=== PATIENT | male | born 1935 | race Caucasian/White ===

== ENCOUNTER 2020-11-24 15:16 | Outpatient (CLI) | payer MEDICARE ==
--- NOTE | 2020-11-24 15:31 | RAD ---
EXAM: Chest PA and lateral: HISTORY: Shortness of breath COMPARISON: 10/16/2005, 02/15/2017 FINDINGS: Heart: Normal cardiac silhouette Aorta: Unremarkable Pulmonary vessels: Normal Costophrenic angles: No pleural effusion. Bibasilar atelectasis. Lungs: No consolidation. Incompletely evaluated nodule projects over the right upper lobe measuring 2 .6 cm. Pneumothorax: No pneumothorax Osseous structures: No osseous abnormalities IMPRESSION: 1. Incompletely evaluated right upper lobe nodule. Better interrogation with chest CT is recommended Code lung nodule CODE T
== END 2020-11-24 15:17 | disposition home or self-care (01) ==
LOC: RAD-FRANK 15:16
PROVIDERS: ATTEND Nurse Practitioner Family
DX: R06.02 Shortness of breath (principal); R91.1 Solitary pulmonary nodule
CPT/HCPCS: 71046

== ENCOUNTER 2020-12-02 11:58 | Outpatient (CLI) | payer MEDICARE, OTHER ==
--- NOTE | 2020-12-02 13:42 | CT ---
Exam: Chest CT with contrast HISTORY: Right upper lung nodule. COMPARISON: None Correlation: Chest radiograph 11/24/2020 FINDINGS: Mediastinum: No mass, lymphadenopathy or hematoma. Normal heart size. No significant pericardial flui d. There is an enlarged pericardial lymph node measuring 1.2 x 1.0 cm. Aorta: Normal caliber. No periaortic fat stranding Subdiaphragmatic structures: Symmetric enhancement of the kidneys. Bilateral renal cysts. No obstruct gonzalo uropathy. Trachea and central bronchi: Patent LUNGS: Multiple solid nodules throughout the lung parenchyma. There is a pleural-based solid nodule a long the posterior aspect of the right upper lobe measuring 2.1 x 1.7 cm. This nodule is felt to represent the recent mammographic finding. Additional nodules are identified. There is a 0.9 x 0.7 cm solid nodule in the superior segment of the right lower lobe. There appear to be groundglass nodules in the right lung base measuring 2.3 x 1.6 cm and 1.7 x 1.0 cm. No pleural effusion. No pneumothorax. Central pulmonary arteries: There are evidence of pulmonary emboli involving bilateral upper lobe, bi lateral lower lobe and middle lobe pulmonary lobar arteries. IMPRESSION: 1. Multiple lung parenchymal nodules, worrisome for malignancy until proven otherwise. 2. Bilateral pulmonary emboli. 3. Results study conveyed to Dr. Zamora 12/02/2020 at 1:41 PM. Findings also conveyed to the patient's daughter. Patient's daughter is instructed to being the patient directly back to [facility] ER. Code CR Transcribed Date/Time: 12/02/2020 1:50 PM
[2020-12-02] MEDS ORDERED: Iopamidol-370 76% 500 ML 1 ML ONE (14:57)
== END 2020-12-02 11:59 | disposition home or self-care (01) ==
LOC: BICCT 11:58
PROVIDERS: ATTEND Internal Medicine Pulmonary Disease
DX: R91.1 Solitary pulmonary nodule (principal); R91.8 Other nonspecific abnormal finding of lung field; I26.99 Other pulmonary embolism without acute cor pulmonale
CPT/HCPCS: 71260; 82565

== ENCOUNTER 2020-12-02 15:12 | Inpatient (IN) | payer MEDICARE, OTHER ==
[2020-12-02 15:56] LABS: #Eosinphils 0.1 thou/uL (0.0-0.7); #Lymphocytes 1.7 thou/uL (1.20-3.40); #Monocytes 0.8 thou/uL (0.11-0.59); #Neutrophils 6.7 thou/uL (1.40-6.50); %Basophils 0.3 % (0.0-1.0); %Eosinophils 1.5 % (0.0-10.0); %Monocytes 8.4 % (0.0-10.0); %Neutrophils 71.8 % (42.0-75.0); Hemoglobin 14.1 g/dL (14.0-18.0); Mean Corpuscular HGB CONC 34.2 g/dL (32.0-36.0); Mean Corpuscular Hemoglobin 33.9 pg (27.0-31.0); Mean Corpuscular Volume 98.9 fL (78.0-98.0); Mean Platelet Volume 5.3 fL (7.4-10.4); Platelet Count 186 thou/uL (130-400); RBC Distribution Width 12.9 % (11.5-14.5); Red Blood Cell (RBC) Count 4.16 mill/uL (4.70-6.10); White Blood Cell (WBC) Count 9.4 thou/uL (4.8-10.8)
[2020-12-02] MEDS ORDERED: Enoxaparin Sodium 100 MG/ML SYRINGE ONE (15:56)
[2020-12-02 16:01] LABS: INR-International Normal Ratio 1.1; PTT 29.1 sec (22.9-36.1); Prothrombin Time 13.9 sec (12.0-14.7)
[2020-12-02 16:16] LABS: D-Dimer Test 6.4 *mcg/mL (0.27-0.43)
[2020-12-02 16:27] LABS: ALT (SGPT) 27 U/L (8-55); AST (SGOT) 28 U/L (5-34); Albumin 3.9 g/dL (3.4-4.8); Alkaline Phosphatase 88 U/L (40-110); Anion Gap 16 mmol/L (10-20); BUN (Urea Nitrogen) 25 mg/dL (8.4-25.7); Bilirubin, Total 0.9 mg/dL (0.2-1.2); Calc. Creatinine Clearance 0 mL/min (70-130); Calcium 9.3 mg/dL (7.8-10.44); Carbon Dioxide 23 mmol/L (23-31); Chloride 103 mmol/L (98-107); Globulin 3.5 g/dL (2.4-3.5); Glucose 116 mg/dL (83-110); Potassium 5.1 mmol/L (3.5-5.1); Protein, Total 7.4 g/dL (5.8-8.1); Sodium 137 mmol/L (136-145)
--- NOTE | 2020-12-02 17:15 | PDOC.HHP ---
Hospitalist HPI - History of Present Illness SOB History of Present Illness: Mr. Schneider is an 85-year-old male with a past medical history of hypertension, glaucoma, prostate cancer status post prostatectomy who presents to the emergency room sent in from radiologist office for PE found on CT scan. Patient reports that over the past few months he has had worsening shortness of breath on exertion which prompted head to present to his PCP. His PCP had a chest x- ray which showed pulmonary nodules and patient was referred to Dr. Correia's office who ordered a CT scan of the chest. CT scan showed multiple nodules concerning for malignancy as well as multiple bilateral upper lower and middle lobe pulmon rickey embolisms. Patient has noted that he has chronic swellings bilaterally, but that his left leg is slightly more swollen than usual. Patient denies chest pain, shortness of breath at rest, palpitations. Denies numbness weakness or paresthesias. Patient reports he otherwise feels at his baseline. In emergency room initial vital signs 134/79, 115, 24, 97.9, 95% on room air. EKG showed sinus tachycardia with [id number]. H/H 14.1/41.2 D-dimer 6.4. WBC 9.4. Platelets 186. PT 13.9, INR 1.1. BUN/CR 25/1.14, sodium 137, potassium 5.1. Patient received 1mg/kg of Lovenox. Hospitalist ROS - Review of Systems Constitutional: denies: fever, chills, sweats, weakness, malaise, other Eyes: denies: pain, vision change, conjunctivae inflammation, eyelid inflammation, redness, other ENT: denies: ear pain, ear discharge, nose pain, nose discharge, nose congestion, mouth pain, mouth swelling, throat pain, throat swelling, other Respiratory: reports: SOB with excertion. denies: cough, dry, shortness of breath, hemoptysis, pleuritic pain, sputum, wheezing, other Cardiovascular: denies: chest pain, palpitations, orthopnea, paroxysmal noc. dyspnea, edema, light headedness, other Gastrointestinal: denies: nausea, vomiting, abdominal pain, diarrhea, constipation, melena, hematochezia, other Genitourinary: denies: dysuria, frequency, incontinence, hematuria, retention, other Musculoskeletal: denies: neck pain, shoulder pain, arm pain, back pain, hand p ain, leg pain, foot pain, other Skin: denies: rash, lesions, cesar, bruising, other Neurological: denies: weakness, numbness, incoordination, change in speech, confusion, seizures, other - Medication Medications: Medications include Clonidine Lisinopril Allergies to penicillin, sulfa drugs Hospitalist History - Past Medical History Other Medical History: Hypertension Prostate cancer status post prostatectomy Glaucoma - Past Surgical History Other Surgical History: Past surgical history includes Cholecystectomy Prostatectomy Knee surgery - Family History Other Family History: Denies family history of cancer - Social History Smoking Status: Former smoker (Quit smoking over 10 years ago) Alcohol: reports: None Drugs: reports: none Living Situation: With Family Activity level: uses cane/walker - Exam General Appearance: NAD, awake alert Eye: PERRL, anicteric sclera ENT: normocephalic atraumatic, no oropharyngeal lesions, moist mucosa Neck: supple, symmetric, no JVD, no thyromegaly, no lymphadenopathy, no carotid bruit Heart: RRR, no murmur, no gallops, no rubs, normal peripheral pulses Respiratory: CTAB, no wheezes, no rales, no ronchi, normal chest expansion, no tachypnea, normal percussion Gastrointestinal: soft, non-tender, non-distended, normal bowel sounds, no palpable masses, no hepatomegaly, no splenomegaly, no bruit Extremities: no cyanosis, no clubbing, no edema Skin: normal turgor, no lesions, no rashes Neurological: cranial nerve grossly intact, normal sensation to touch, no weakness, no focal deficits, no new deficit Musculoskeletal: normal tone, normal strength, no muscle wasting Psychiatric: normal affect, normal behavior, A&O x 3 Hospitalist Results - Labs Result Diagrams: 12/02/20 15:45 12/02/20 15:45 Lab results: WBC 9.4 thou/uL (4.8-10.8) 12/02/20 15:45 Hgb 14.1 g/dL (14.0-18.0) 12/02/20 15:45 Hct 41.2 % (42.0-52.0) L 12/02/20 15:45 MCV 98.9 fL (78.0-98.0) H 12/02/20 15:45 Plt Count 186 thou/uL (130-400) 12/02/20 15:45 Neutrophils % 71.8 % (42.0-75.0) 12/02/20 15:45 Sodium 137 mmol/L (136-145) 12/02/20 15:45 Potassium 5.1 mmol/L (3.5-5.1) 12/02/20 15:45 Chloride 103 mmol/L (98-107) 12/02/20 15:45 Carbon Dioxide 23 mmol/L (23-31) 12/02/20 15:45 BUN 25 mg/dL (8.4-25.7) 12/02/20 15:45 Creatinine 1.14 mg/dL (0.7-1.3) 12/02/20 15:45 Glucose 116 mg/dL (83-110) H 12/02/20 15:45 Calcium 9.3 mg/dL (7.8-10.44) 12/02/20 15:45 Total Bilirubin 0.9 mg/dL (0.2-1.2) 12/02/20 15:45 AST 28 U/L (5-34) 12/02/20 15:45 ALT 27 U/L (8-55) 12/02/20 15:45 Alkaline Phosphatase 88 U/L (40-110) 12/02/20 15:45 Troponin I Less than 0.010 ng/mL (< 0.028) 12/02/20 15:45 B-Natriuretic Peptide 13.6 pg/mL (0-100) 12/02/20 15:45 Serum Total Protein 7.4 g/dL (5.8-8.1) 12/02/20 15:45 Albumin 3.9 g/dL (3.4-4.8) 12/02/20 15:45 Hospitalist H&P A/P - Plan Plan: 85-year-old male past medical history of hypertension, glaucoma, prostate cancer status post mastectomy who has had few months history of shortness of breath on exertion found to have bilateral PEs on outpatient CT scan as well as multiple lung nodules concerning for malignancy. Patient follows with Dr. Correia. Bilateral pulmonary embolism Outpatient CT scan showed multiple pulmonary nodules as well as bilateral upper middle and lower lobe pulmonary embolism. Patient's respiratory status currently stable not requiring oxygen. Patient has chronic bilateral lower extremity swelling, but does note that his left leg has worse swelling than normal. He is a former smoker but quit over 10 years ago. He has no family history of cancer. Patient received therapeutic Lovenox in the emergency room, which we will continue. Plan Lovenox therapeutic Closely monitor respiratory status Telemetry monitoring Pulmonology consult Multiple pulmonary nodules CT scan with multiple pulmonary nodules concerning for malignancy. Patient does have a history of prostate cancer which he underwent a prostatectomy and has been in complete remission. Does have a history of smoking but quit over 10 years ago family history of cancer. Respiratory status stable not requiring O2 at this time. Plan Pulmonology consult Hypertension We will continue home clonidine and lisinopril Glaucoma Continue home eye drops DVT prophylaxistherapeutic Lovenox Full codeMDM is patient's daughter Case discussed with attending physician, Dr. Maynard.
[2020-12-02 20:29] VITALS: BMI 32.0
[2020-12-02] MEDS ORDERED: Acetaminophen 650 MG Suppository PR PRN (21:54)
[2020-12-02] MEDS ORDERED: Acetaminophen 325 MG TAB PO PRN (21:54)
[2020-12-02] MEDS ORDERED: Albuterol 200 PUFF (6.7GM INHALER) INH PRN (22:13)
[2020-12-03 03:43] LABS: #Eosinphils 0.1 thou/uL (0.0-0.7); #Lymphocytes 1.4 thou/uL (1.20-3.40); #Monocytes 0.9 thou/uL (0.11-0.59); #Neutrophils 4.6 thou/uL (1.40-6.50); %Basophils 0.6 % (0.0-1.0); %Monocytes 12.5 % (0.0-10.0); %Neutrophils 64.9 % (42.0-75.0); Hemoglobin 13.1 g/dL (14.0-18.0); Mean Corpuscular HGB CONC 33.6 g/dL (32.0-36.0); Mean Corpuscular Hemoglobin 33.1 pg (27.0-31.0); Mean Corpuscular Volume 98.7 fL (78.0-98.0); Mean Platelet Volume 5.7 fL (7.4-10.4); Platelet Count 162 thou/uL (130-400); RBC Distribution Width 12.9 % (11.5-14.5); Red Blood Cell (RBC) Count 3.94 mill/uL (4.70-6.10); White Blood Cell (WBC) Count 7.1 thou/uL (4.8-10.8)
[2020-12-03 03:59] LABS: Anion Gap 13 mmol/L (10-20); BUN (Urea Nitrogen) 23 mg/dL (8.4-25.7); Calc. Creatinine Clearance 72 mL/min (70-130); Calcium 8.5 mg/dL (7.8-10.44); Carbon Dioxide 24 mmol/L (23-31); Chloride 106 mmol/L (98-107); Glucose 124 mg/dL (83-110); Potassium 3.8 mmol/L (3.5-5.1); Sodium 139 mmol/L (136-145)
[2020-12-03] MEDS: Lisinopril/Hydrochlorothiazide 20/25 mg Tablet PO SCH (07:48)
[2020-12-03] MEDS: Enoxaparin Sodium 100 MG/ML SYRINGE SC SCH ×2 (07:48→21:42)
[2020-12-03 10:32] LABS: SARS-CoV-2 PCR by NAA Not Detected (NotDetected)
[2020-12-03] MEDS: DorzolamidE/Timolol 2%/0.5% Ophth Soln 10 ml Bottle EA EYE SCH ×2 (11:00→21:41)
[2020-12-03] MEDS ORDERED: Latanoprost 0.005% Ophth Soln 2.5 ml Bottle EA EYE SCH (12:00)
--- NOTE | 2020-12-03 12:13 | ULT ---
Bilateral lower extremity venous Doppler ultrasound: 12/03/2020 COMPARISON: None HISTORY: Edema, swelling, assess for DVT TECHNIQUE: Multiplanar grayscale sonographic imaging of the venous structures of bilateral lower extr emities obtained with color flow and spectral analysis FINDINGS: Bilateral common femoral veins, greater saphenous veins, profunda femoral veins, femoral ve ins, popliteal veins, and posterior tibial veins are patent. There is normal blood flow, augmentation, and compression within the deep venous system bilaterally. No evidence for DVT on eithe r side IMPRESSION: No evidence for deep venous thrombosis of either lower extremity.
--- NOTE | 2020-12-03 14:52 | PDOC.HOSPP ---
- Subjective Encounter Date: 12/03/20 Encounter Time: 14:49 Subjective: No overnight events. Patient sitting up in chair comfortably. Denies chest pain, SOB. No other concerns or complaints at this time. Chart and medications reviewed. - Objective Vital Signs & Weight: Vital Signs (12 hours) Temp Pulse Resp BP Pulse Ox 12/03/20 12:00 98.0 F 105 H 18 152/70 H 93 L 12/03/20 07:55 92 L 12/03/20 07:48 90 12/03/20 07:43 98.5 F 86 16 137/76 92 L 12/03/20 03:25 98.4 F 90 18 143/67 H 93 L Weight Weight 223 lb 7 oz I&O: 12/02/20 12/03/20 12/04/20 06:59 06:59 06:59 Intake Total 50 Output Total 215 Balance -165 Result Diagrams: 12/03/20 03:11 12/03/20 03:11 Hospitalist ROS - Review of Systems Constitutional: denies: fever, chills, sweats, weakness, malaise, other Eyes: denies: vision change ENT: denies: nose congestion, throat pain Cardiovascular: denies: chest pain, palpitations, light headedness Genitourinary: denies: dysuria, frequency, incontinence, hematuria, retention, other Skin: denies: rash, lesions, cesar, bruising, other Neurological: denies: weakness, numbness, incoordination, change in speech, confusion, seizures, other - Medication Medications: Active Medications Generic Name Dose Route Start Last Admin Trade Name Chanq PRN Reason Stop Dose Admin Dorzolamide/Timolol 1 drop 12/03/20 09:00 12/03/20 11:00 Dorzolamide/Timolol 2%/0.5% Ophth Soln 10 Ml Bottle EA EYE 1 drp QAM ELIOT Administration Enoxaparin Sodium 100 mg 12/03/20 09:00 12/03/20 07:48 Enoxaparin Sodium 100 Mg/Ml Syringe SC 100 mg 0900,2100 ELIOT Administration Lisinopril/HCTZ 1 tab 12/03/20 09:00 12/03/20 07:48 Lisinopril/Hydrochlorothiazide 20/25 Mg Tablet PO 1 tab DAILY ELIOT Administration - Exam General Appearance: NAD, awake alert Eye: PERRL, anicteric sclera ENT: normocephalic atraumatic, no oropharyngeal lesions, moist mucosa Neck: supple, symmetric, no JVD, no thyromegaly, no lymphadenopathy, no carotid bruit Heart: RRR, no murmur, no gallops, no rubs, normal peripheral pulses Respiratory: CTAB, no wheezes, no rales, no ronchi, normal chest expansion, no tachypnea, normal percussion Gastrointestinal: soft, non-tender, non-distended, normal bowel sounds, no pal pable masses, no hepatomegaly, no splenomegaly, no bruit Extremities: no cyanosis, no clubbing, no edema Skin: normal turgor, no lesions, no rashes Neurological: cranial nerve grossly intact, normal sensation to touch, no wea kness, no focal deficits, no new deficit Musculoskeletal: normal tone, normal strength, no muscle wasting Psychiatric: normal affect, normal behavior, A&O x 3 Hosp A/P - Plan Plan: 85-year-old male past medical history of hypertension, glaucoma, prostate cancer status post mastectomy who has had few months history of shortness of breath on exertion found to have bilateral PEs on outpatient CT scan as well as multiple lung nodules concerning for malignancy. Patient follows with Dr. Correia. Bilateral pulmonary embolism Outpatient CT scan showed multiple pulmonary nodules as well as bilateral upper middle and lower lobe pulmonary embolism. Patient's respiratory status currently stable not requiring oxygen. Patient has chronic bilateral lower extremity swelling, but does note that his left leg has worse swelling than normal. He is a former smoker but quit over 10 years ago. He has no family history of cancer. LE DVT study negative. Continued on therapeutic lovenox. Will hold off on oral AC in case pulmonary has plans for bronchoscopy. Plan Lovenox therapeutic Closely monitor respiratory status Telemetry monitoring Pulmonology consult Multiple pulmonary nodules CT scan with multiple pulmonary nodules concerning for malignancy. Patient does have a history of prostate cancer which he underwent a prostatectomy and has been in complete remission. Does have a history of smoking but quit over 10 years ago family history of cancer. Respiratory status stable not requiring O2 at this time. Plan Pulmonology consult Hypertension We will continue home clonidine and lisinopril Glaucoma Continue home eye drops DVT prophylaxistherapeutic Lovenox Full codeMDM is patient's daughter Case discussed with attending physician, Dr. Garcia.
--- NOTE | 2020-12-03 16:02 | CON ---
DATE OF CONSULTATION: 12/03/2020 HISTORY OF PRESENT ILLNESS: Mr. Schneider is an 85-year-old male. He was seen by my associate, ordered a CT of his chest. He has multiple pulmonary nodules. CT scanning showed pulmonary emboli as an incidental finding. Subsequently, he was admitted for treatment of pulmonary emboli. He is under the impression that this is what caused the pulmonary nodules, but I have explained to him that we still do not know what has caused pulmonary nodules and this has to be worked up at some point. PAST MEDICAL HISTORY: 1. Remarkable for hypertension. 2. History of prostate cancer with prostatectomy in the past. 3. History of glaucoma. 4. History of cholecystectomy. 5. History of knee surgery. MEDICATIONS: He is on Catapres and lisinopril prior to admission. ALLERGIES: REPORTS ALLERGIES TO PENICILLIN AND SULFA. FAMILY HISTORY: Negative for lung disease in early age. REVIEW OF SYSTEMS: Ten-point is otherwise negative. He states his dyspnea on exertion is markedly improved. PHYSICAL EXAMINATION: VITAL SIGNS: He is afebrile. Heart rate is 90, respiratory rate 16, oximetry is 92% on room air, blood pressure 152/70. HEAD AND NECK: Unremarkable. LUNGS: Clear. HEART: Regular rhythm. S1, S2 are normal. ABDOMEN: Soft and nontender. EXTREMITIES: Without clubbing, cyanosis, or edema. LABORATORY DATA: White count 7.1, hemoglobin 13.1, platelets 162. Electrolytes are normal. IMPRESSION: 1. Multiple pulmonary nodules of unclear etiology with history of prostate cancer. 2. Thromboembolic disease as an incidental finding. He will be anticoagulated for several days of Lovenox and Dr. Correia had seen in consultation, make decisions regarding workup for these nodules at some point in time. This is a 50 min. consult with greater than 50% of the time spent on the unit with coordination of care. Job ID: [id number] [facility]
[2020-12-03] MEDS: Latanoprost 0.005% Ophth Soln 2.5 ml Bottle EA EYE SCH (21:42)
[2020-12-03] MEDS: cloNIDine 0.1 MG TAB PO SCH (21:42)
[2020-12-04 05:07] LABS: #Eosinphils 0.2 thou/uL (0.0-0.7); #Lymphocytes 1.5 thou/uL (1.20-3.40); #Monocytes 0.7 thou/uL (0.11-0.59); #Neutrophils 4.8 thou/uL (1.40-6.50); %Basophils 0.5 % (0.0-1.0); %Eosinophils 2.8 % (0.0-10.0); %Lymphocytes 20.8 % (21.0-51.0); %Neutrophils 65.9 % (42.0-75.0); Hemoglobin 12.6 g/dL (14.0-18.0); Mean Corpuscular HGB CONC 33.5 g/dL (32.0-36.0); Mean Corpuscular Hemoglobin 33.1 pg (27.0-31.0); Mean Corpuscular Volume 98.6 fL (78.0-98.0); Mean Platelet Volume 5.8 fL (7.4-10.4); Platelet Count 161 thou/uL (130-400); RBC Distribution Width 12.8 % (11.5-14.5); White Blood Cell (WBC) Count 7.3 thou/uL (4.8-10.8)
[2020-12-04 05:28] LABS: Anion Gap 13 mmol/L (10-20); BUN (Urea Nitrogen) 21 mg/dL (8.4-25.7); Calc. Creatinine Clearance 75 mL/min (70-130); Calcium 8.4 mg/dL (7.8-10.44); Carbon Dioxide 22 mmol/L (23-31); Chloride 108 mmol/L (98-107); Glucose 106 mg/dL (83-110); Potassium 4.1 mmol/L (3.5-5.1); Sodium 139 mmol/L (136-145)
[2020-12-04] MEDS: DorzolamidE/Timolol 2%/0.5% Ophth Soln 10 ml Bottle EA EYE SCH ×2 (08:21→22:06)
[2020-12-04] MEDS: Lisinopril/Hydrochlorothiazide 20/25 mg Tablet PO SCH (08:21)
[2020-12-04] MEDS: Enoxaparin Sodium 100 MG/ML SYRINGE SC SCH ×2 (08:22→22:06)
--- NOTE | 2020-12-04 14:46 | PDOC.HOSPP ---
- Subjective Encounter Date: 12/04/20 Encounter Time: 10:20 Subjective: Patient sitting in the chair - daughter at bedside. Explained the plan for today. 2D echo ordered. Patient is getting Lovenox twice a day dose. There was a plan to be evaluated by Dr. Correia for pulmonary nodule. If he is planning to do bronchoscopy at while inpatient then we have to wait until that has been done before switching Lovenox to oral anticoagulant. - Objective Vital Signs & Weight: Vital Signs (12 hours) Temp Pulse Resp BP Pulse Ox 12/04/20 11:20 97.7 F 72 16 113/65 95 12/04/20 08:30 94 L 12/04/20 08:21 78 12/04/20 07:38 97.8 F 72 20 155/74 H 94 L 12/04/20 04:00 97.8 F 78 22 H 123/66 96 Weight Weight 223 lb 7 oz I&O: 12/03/20 12/04/20 12/05/20 06:59 06:59 06:59 Intake Total 50 930 Output Total 215 950 Balance -165 -20 Result Diagrams: 12/04/20 04:07 12/04/20 04:07 Hospitalist ROS - Medication Medications: Active Medications Generic Name Dose Route Start Last Admin Trade Name Freq PRN Reason Stop Dose Admin Clonidine 0.1 mg 12/03/20 21:00 12/03/20 21:42 Clonidine 0.1 Mg Tab PO 0.1 mg HS ELIOT Administration Dorzolamide/Timolol 1 drop 12/03/20 09:00 12/04/20 08:21 Dorzolamide/Timolol 2%/0.5% Ophth Soln 10 Ml Bottle EA EYE 1 drp QAM ELIOT Administration Dorzolamide/Timolol 2 drop 12/03/20 21:00 12/03/20 21:41 Dorzolamide/Timolol 2%/0.5% Ophth Soln 10 Ml Bottle EA EYE 2 drop QPM ELIOT Administration Enoxaparin Sodium 100 mg 12/03/20 09:00 12/04/20 08:22 Enoxaparin Sodium 100 Mg/Ml Syringe SC 100 mg 0900,2100 ELIOT Administration Lisinopril/HCTZ 1 tab 12/03/20 09:00 12/04/20 08:21 Lisinopril/Hydrochlorothiazide 20/25 Mg Tablet PO 1 tab DAILY ELIOT Administration Latanoprost 1 drop 12/03/20 21:00 12/03/20 21:42 Latanoprost 0.005% Oph Soln 2.5 Ml Bottle EA EYE 1 drop HS ELIOT Administration - Exam General Appearance: NAD, awake alert Eye: PERRL ENT: normocephalic atraumatic Neck: supple Heart: RRR, normal peripheral pulses Respiratory: CTAB, normal chest expansion Gastrointestinal: soft, normal bowel sounds Neurological: cranial nerve grossly intact, no focal deficits Psychiatric: normal affect, normal behavior, A&O x 3 Hosp A/P - Plan 85-year-old male past medical history of hypertension, glaucoma, prostate cancer status post mastectomy who has had few months history of shortness of breath on exertion found to have bilateral PEs on outpatient CT scan as well as multiple lung nodules concerning for malignancy. Patient follows with Dr. Correia. Bilateral pulmonary embolism Outpatient CT scan showed multiple pulmonary nodules as well as bilateral upper middle and lower lobe pulmonary embolism. Patient's respiratory status currently stable not requiring oxygen. Patient has chronic bilateral lower extremity swelling, but does note that his left leg has worse swelling than normal. He is a former smoker but quit over 10 years ago. He has no family history of cancer. LE DVT study negative. Continued on therapeutic lovenox. Will hold off on oral AC in case pulmonary has plans for bronchoscopy. Plan Lovenox therapeutic Closely monitor respiratory status Telemetry monitoring Pulmonology consult Multiple pulmonary nodules CT scan with multiple pulmonary nodules concerning for malignancy. Patient does have a history of prostate cancer which he underwent a prostatectomy and has been in complete remission. Does have a history of smoking but quit over 10 years ago family history of cancer. Respiratory status stable not requiring O2 at this time. Plan Pulmonology consult Hypertension We will continue home clonidine and lisinopril Glaucoma Continue home eye drops DVT prophylaxistherapeutic Lovenox Full codeMDM is patient's daughter 24th 2D echo ordered to make sure there is no right heart strain with the pulmonary embolus. Patient is getting Lovenox twice a day dose. There was a plan to be evaluated by Dr. Correia for pulmonary nodule. If he is planning to do bronchoscopy while inpatient, then we have to wait until that has been done before switching Lovenox to oral anticoagulant. -We will switch to Eliquis, when pulmonary cleared him after evaluation for pulmonary nodule.
--- NOTE | 2020-12-04 15:03 | PRG ---
DATE OF SERVICE: 12/04/2020 SUBJECTIVE: Mr. Schneider has no complaints. He says he is feeling much better. OBJECTIVE: VITAL SIGNS: He is afebrile, heart rate 72, respiratory rate 16, oximetry is 95 on room air, blood pressure 113/65. LUNGS: Clear. HEART: Regular rhythm. ABDOMEN: Soft. IMPRESSION: Pulmonary emboli, it is an incidental finding on CAT scan working up, pulmonary nodules. Dr. Correia will return tomorrow, make decisions regarding timing of biopsies if indicated. If no biopsy is planned in the near future, he could go home tomorrow on oral anticoagulants. He had no clot seen on lower extremity venogram. Job ID: [id number]
[2020-12-04] MEDS: cloNIDine 0.1 MG TAB PO SCH (22:06)
[2020-12-04] MEDS: Latanoprost 0.005% Ophth Soln 2.5 ml Bottle EA EYE SCH (22:07)
[2020-12-05 04:45] LABS: #Eosinphils 0.3 thou/uL (0.0-0.7); #Lymphocytes 1.3 thou/uL (1.20-3.40); #Monocytes 0.8 thou/uL (0.11-0.59); #Neutrophils 4.4 thou/uL (1.40-6.50); %Basophils 0.2 % (0.0-1.0); %Eosinophils 4.2 % (0.0-10.0); %Monocytes 11.8 % (0.0-10.0); %Neutrophils 64.8 % (42.0-75.0); Hemoglobin 12.4 g/dL (14.0-18.0); Mean Corpuscular HGB CONC 34.2 g/dL (32.0-36.0); Mean Corpuscular Hemoglobin 33.6 pg (27.0-31.0); Mean Corpuscular Volume 98.2 fL (78.0-98.0); Mean Platelet Volume 6.5 fL (7.4-10.4); Platelet Count 139 thou/uL (130-400); RBC Distribution Width 12.7 % (11.5-14.5); White Blood Cell (WBC) Count 6.7 thou/uL (4.8-10.8)
[2020-12-05 05:13] LABS: Anion Gap 11 mmol/L (10-20); BUN (Urea Nitrogen) 18 mg/dL (8.4-25.7); Calc. Creatinine Clearance 80 mL/min (70-130); Calcium 8.7 mg/dL (7.8-10.44); Carbon Dioxide 25 mmol/L (23-31); Chloride 105 mmol/L (98-107); Glucose 118 mg/dL (83-110); Sodium 137 mmol/L (136-145)
[2020-12-05] MEDS: Lisinopril/Hydrochlorothiazide 20/25 mg Tablet PO SCH (08:41)
[2020-12-05] MEDS: Enoxaparin Sodium 100 MG/ML SYRINGE SC SCH ×2 (08:41→20:03)
[2020-12-05] MEDS: DorzolamidE/Timolol 2%/0.5% Ophth Soln 10 ml Bottle EA EYE SCH ×2 (08:42→20:05)
--- NOTE | 2020-12-05 09:49 | PRG ---
DATE OF SERVICE: 12/05/2020 SUBJECTIVE: This morning he is awake, alert, and responsive. He is less short of breath. OBJECTIVE: VITAL SIGNS: Temperature 97, pulse 83, respiratory rate 18, saturations 90% on room air, blood pressure . CHEST: No wheezing, no crackles. CARDIAC: Normal S1, S2. No gallops. LABORATORY DATA: Unremarkable. ASSESSMENT AND PLAN: 1. Morbid obesity. 2. Bilateral lung nodules, metastatic disease. 3. Bilateral pulmonary emboli. Discussed with the patient. He said he would like to go home. Come back at later time for a CT-guided lung biopsy. I will discuss with his daughter, probably plan to switch him over to p.o. medication and see him back in the office in about a month. Schedule outpatient CT-guided biopsy. Job ID: [id number]
--- NOTE | 2020-12-05 15:15 | PDOC.HOSPP ---
- Subjective Encounter Date: 12/05/20 Encounter Time: 14:12 Subjective: Patient doing well. He is it appears the plan has changed at that to get the biopsy on per territory service representative. - Objective Vital Signs & Weight: Vital Signs (12 hours) Temp Pulse Resp BP Pulse Ox 12/05/20 11:10 97.6 F 73 18 99/60 98 12/05/20 08:00 98.7 F 83 18 134/77 98 12/05/20 05:26 95 12/05/20 03:48 98.2 F 80 18 122/60 95 Weight Weight 223 lb 7 oz I&O: 12/04/20 12/05/20 12/06/20 06:59 06:59 06:59 Intake Total 930 1130 Output Total 950 1550 Balance -20 -420 Result Diagrams: 12/05/20 04:24 12/05/20 04:24 Hospitalist ROS - Medication Medications: Active Medications Generic Name Dose Route Start Last Admin Trade Name Freq PRN Reason Stop Dose Admin Clonidine 0.1 mg 12/03/20 21:00 12/04/20 22:06 Clonidine 0.1 Mg Tab PO 0.1 mg HS ELIOT Administration Dorzolamide/Timolol 1 drop 12/03/20 09:00 12/05/20 08:42 Dorzolamide/Timolol 2%/0.5% Ophth Soln 10 Ml Bottle EA EYE 1 drp QAM ELIOT Administration Dorzolamide/Timolol 2 drop 12/03/20 21:00 12/04/20 22:06 Dorzolamide/Timolol 2%/0.5% Ophth Soln 10 Ml Bottle EA EYE Not Given QPM ELIOT Enoxaparin Sodium 100 mg 12/03/20 09:00 12/05/20 08:41 Enoxaparin Sodium 100 Mg/Ml Syringe SC 100 mg 0900,2100 ELIOT Administration Lisinopril/HCTZ 1 tab 12/03/20 09:00 12/05/20 08:41 Lisinopril/Hydrochlorothiazide 20/25 Mg Tablet PO 1 tab DAILY ELIOT Administration Latanoprost 1 drop 12/03/20 21:00 12/04/20 22:07 Latanoprost 0.005% Ophth Soln 2.5 Ml Bottle EA EYE Not Given HS ELIOT - Exam General Appearance: NAD, awake alert Eye: PERRL ENT: normocephalic atraumatic Neck: supple Heart: RRR Respiratory: CTAB, normal chest expansion Gastrointestinal: soft, normal bowel sounds Neurological: cranial nerve grossly intact, no focal deficits Psychiatric: normal affect, normal behavior, A&O x 3 Hosp A/P - Plan 85-year-old male past medical history of hypertension, glaucoma, prostate cancer status post mastectomy who has had few months history of shortness of breath on exertion found to have bilateral PEs on outpatient CT scan as well as multiple lung nodules concerning for malignancy. Patient follows with Dr. Correia. Bilateral pulmonary embolism Outpatient CT scan showed multiple pulmonary nodules as well as bilateral upper middle and lower lobe pulmonary embolism. Patient's respiratory status currently stable not requiring oxygen. Patient has chronic bilateral lower extremity swelling, but does note that his left leg has worse swelling than normal. He is a former smoker but quit over 10 years ago. He has no family history of cancer. LE DVT study negative. Continued on therapeutic lovenox. Will hold off on oral AC in case pulmonary has plans for bronchoscopy. Plan Lovenox therapeutic Closely monitor respiratory status Telemetry monitoring Pulmonology consult Multiple pulmonary nodules CT scan with multiple pulmonary nodules concerning for malignancy. Patient does have a history of prostate cancer which he underwent a prostatectomy and has been in complete remission. Does have a history of smoking but quit over 10 years ago family history of cancer. Respiratory status stable not requiring O2 at this time. Plan Pulmonology consult Hypertension We will continue home clonidine and lisinopril Glaucoma Continue home eye drops DVT prophylaxistherapeutic Lovenox Full codeMDM is patient's daughter 2D echo ordered to make sure there is no right heart strain with the pulmonary embolus. Patient is getting Lovenox twice a day dose. There was a plan to be evaluated by Dr. Correia for pulmonary nodule. If he is planning to do bronchoscopy while inpatient, then we have to wait until that has been done before switching Lovenox to oral anticoagulant. -We will switch to Eliquis, when pulmonary cleared him after evaluation for pulmonary nodule. -2D echo shows EF of 60% and diastolic dysfunction; mild left atrial dilated Tatian It appears biopsy of the pulmonary nodule possibly on Saturday so will continue with the Lovenox for now for his pulmonary embolism. May need to stop at least 1 dose prior to the biopsy
[2020-12-05] MEDS: cloNIDine 0.1 MG TAB PO SCH (20:04)
[2020-12-05] MEDS: Latanoprost 0.005% Ophth Soln 2.5 ml Bottle EA EYE SCH (20:05)
[2020-12-06 05:01] LABS: #Eosinphils 0.2 thou/uL (0.0-0.7); #Lymphocytes 1.5 thou/uL (1.20-3.40); #Monocytes 0.8 thou/uL (0.11-0.59); #Neutrophils 4.6 thou/uL (1.40-6.50); %Basophils 0.6 % (0.0-1.0); %Monocytes 10.8 % (0.0-10.0); %Neutrophils 64.6 % (42.0-75.0); Mean Corpuscular HGB CONC 34.3 g/dL (32.0-36.0); Mean Corpuscular Hemoglobin 33.8 pg (27.0-31.0); Mean Corpuscular Volume 98.3 fL (78.0-98.0); Platelet Count 172 thou/uL (130-400); RBC Distribution Width 12.9 % (11.5-14.5); Red Blood Cell (RBC) Count 3.85 mill/uL (4.70-6.10); White Blood Cell (WBC) Count 7.1 thou/uL (4.8-10.8)
[2020-12-06 05:34] LABS: Anion Gap 13 mmol/L (10-20); BUN (Urea Nitrogen) 18 mg/dL (8.4-25.7); Calc. Creatinine Clearance 84 mL/min (70-130); Calcium 8.7 mg/dL (7.8-10.44); Carbon Dioxide 23 mmol/L (23-31); Chloride 106 mmol/L (98-107); Glucose 112 mg/dL (83-110); Potassium 3.7 mmol/L (3.5-5.1); Sodium 138 mmol/L (136-145)
[2020-12-06] MEDS: Enoxaparin Sodium 100 MG/ML SYRINGE SC SCH ×2 (08:48→19:49)
[2020-12-06] MEDS: Lisinopril/Hydrochlorothiazide 20/25 mg Tablet PO SCH (08:48)
[2020-12-06] MEDS: DorzolamidE/Timolol 2%/0.5% Ophth Soln 10 ml Bottle EA EYE SCH ×2 (08:49→19:49)
--- NOTE | 2020-12-06 10:45 | PRG ---
DATE OF SERVICE: 12/06/2020 SUBJECTIVE: Lb Schneider this morning is awake, alert, and responsive. He is doing well. OBJECTIVE: VITAL SIGNS: Temperature 98, pulse 86, respiratory rate 21, sats are 90% on room air, blood pressure 140/78. CHEST: No wheezing, no crackles. CARDIAC: Normal S1 and S2. No gallops. ABDOMEN: No masses. ASSESSMENT AND PLAN: Respiratory failure, robledo positive, secondary to PE, multiple lung masses. The patient is scheduled for a CT-guided biopsy on . We are going to stop [employer] tomorrow. Job ID: [id number]
--- NOTE | 2020-12-06 13:20 | PDOC.HOSPP ---
- Subjective Encounter Date: 12/06/20 Encounter Time: 11:50 Subjective: Sitting in the chair. Dr. Ward visited him. Plan to hold the Lovenox tomorrow and possible lung biopsy on . Denies short of breath with ambulation. No chest discomfort at rest. - Objective Vital Signs & Weight: Vital Signs (12 hours) Temp Pulse Resp BP Pulse Ox 12/06/20 11:09 97.5 F L 89 19 120/63 98 12/06/20 07:38 98.7 F 86 21 H 148/78 H 99 12/06/20 07:10 94 L 12/06/20 04:00 97.6 F 86 21 H 138/81 94 L Weight Weight 223 lb 7 oz I&O: 12/05/20 12/06/20 12/07/20 06:59 06:59 06:59 Intake Total 1130 470 Output Total 1550 550 Balance -420 -80 Result Diagrams: 12/06/20 04:25 12/06/20 04:25 Hospitalist ROS - Medication Medications: Active Medications Generic Name Dose Route Start Last Admin Trade Name Freq PRN Reason Stop Dose Admin Clonidine 0.1 mg 12/03/20 21:00 12/05/20 20:04 Clonidine 0.1 Mg Tab PO Not Given HS ELIOT Dorzolamide/Timolol 1 drop 12/03/20 09:00 12/06/20 08:49 Dorzolamide/Timolol 2%/0.5% Ophth Soln 10 Ml Bottle EA EYE 1 drp QAM ELIOT Administration Dorzolamide/Timolol 2 drop 12/03/20 21:00 12/05/20 20:05 Dorzolamide/Timolol 2%/0.5% Ophth Soln 10 Ml Bottle EA EYE 2 drop QPM ELIOT Administration Enoxaparin Sodium 100 mg 12/03/20 09:00 12/06/20 08:48 Enoxaparin Sodium 100 Mg/Ml Syringe SC 12/06/20 23:00 100 mg 0900,2100 ELIOT Administration Lisinopril/HCTZ 1 tab 12/03/20 09:00 12/06/20 08:48 Lisinopril/Hydrochlorothiazide 20/25 Mg Tablet PO 1 tab DAILY ELIOT Administration Latanoprost 1 drop 12/03/20 21:00 12/05/20 20:05 Latanoprost 0.005% Ophth Soln 2.5 Ml Bottle EA EYE 1 drop HS [facility] Administration Hospitalist Exam Vitals: Vital Signs (12 hours) Temp Pulse Resp BP Pulse Ox 12/06/20 11:09 97.5 F L 89 19 120/63 98 12/06/20 07:38 98.7 F 86 21 H 148/78 H 99 12/06/20 07:10 94 L 12/06/20 04:00 97.6 F 86 21 H 138/81 94 L Weight Weight 223 lb 7 oz General Appearance: NAD, awake alert Eye: PERRL ENT: normocephalic atraumatic Neck: supple Heart: RRR, normal peripheral pulses Respiratory: CTAB, normal chest expansion Gastrointestinal: soft, normal bowel sounds Neurological: cranial nerve grossly intact, no focal deficits Psychiatric: normal affect, normal behavior, A&O x 3 Hosp A/P - Plan 85-year-old male past medical history of hypertension, glaucoma, prostate cancer status post mastectomy who has had few months history of shortness of breath on exertion found to have bilateral PEs on outpatient CT scan as well as multiple lung nodules concerning for malignancy. Patient follows with Dr. Correia. Bilateral pulmonary embolism Outpatient CT scan showed multiple pulmonary nodules as well as bilateral upper middle and lower lobe pulmonary embolism. Patient's respiratory status currently stable not requiring oxygen. Patient has chronic bilateral lower extremity swelling, but does note that his left leg has worse swelling than normal. He is a former smoker but quit over 10 years ago. He has no family history of cancer. LE DVT study negative. Continued on therapeutic lovenox. Will hold off on oral AC in case pulmonary has plans for bronchoscopy. Plan Lovenox therapeutic Closely monitor respiratory status Telemetry monitoring Pulmonology consult Multiple pulmonary nodules CT scan with multiple pulmonary nodules concerning for malignancy. Patient does have a history of prostate cancer which he underwent a prostatectomy and has been in complete remission. Does have a history of smoking but quit over 10 years ago family history of cancer. Respiratory status stable not requiring O2 at this time. Plan Pulmonology consult Hypertension We will continue home clonidine and lisinopril Glaucoma Continue home eye drops DVT prophylaxistherapeutic Lovenox Full codeMDM is patient's daughter 2D echo ordered to make sure there is no right heart strain with the pulmonary embolus. Patient is getting Lovenox twice a day dose. There was a plan to be evaluated by Dr. Correia for pulmonary nodule. If he is planning to do bronchoscopy while inpatient, then we have to wait until that has been done before switching Lovenox to oral anticoagulant. -We will switch to Eliquis, when pulmonary cleared him after evaluation for pulmonary nodule. -2D echo shows EF of 60% and diastolic dysfunction; mild left atrial dilated Tatian It appears biopsy of the pulmonary nodule possibly on Saturday so will continue w ith the Lovenox for now for his pulmonary embolism. May need to stop at least 1 dose prior to the biopsy Hold Lovenox on Saturday and the lung biopsy . N.p.o. post Saturday midnight.
[2020-12-06] MEDS: cloNIDine 0.1 MG TAB PO SCH (19:48)
[2020-12-06] MEDS: Latanoprost 0.005% Ophth Soln 2.5 ml Bottle EA EYE SCH (19:49)
[2020-12-07] MEDS: DorzolamidE/Timolol 2%/0.5% Ophth Soln 10 ml Bottle EA EYE SCH ×2 (09:02→19:33)
[2020-12-07] MEDS: Lisinopril/Hydrochlorothiazide 20/25 mg Tablet PO SCH (09:02)
--- NOTE | 2020-12-07 09:59 | PDOC.HOSPP ---
- Subjective Encounter Date: 12/07/20 Encounter Time: 11:11 Subjective: Mr. Schneider was seen this morning in follow up of bilateral pulmonary nodules. He says he is feeling much better today. He denies any SOB, wheezing, or cough. He is scheduled to have his biopsy tomorrow, and anticipates discharge soon after. - Objective Vital Signs & Weight: Vital Signs (12 hours) Temp Pulse Resp BP BP Pulse Ox 12/07/20 07:54 98.6 F 72 12 96/74 96 12/07/20 03:32 97.4 F L 77 18 115/61 94 L 12/07/20 00:35 96 Weight Weight 221 lb 6.4 oz I&O: 12/06/20 12/07/20 12/08/20 06:59 06:59 06:59 Intake Total 470 590 Output Total 550 2200 Balance -80 -1610 Result Diagrams: 12/06/20 04:25 12/06/20 04:25 Hospitalist ROS - Review of Systems Constitutional: denies: fever, chills, sweats Respiratory: denies: cough, shortness of breath Cardiovascular: denies: chest pain, palpitations Gastrointestinal: denies: nausea, vomiting, abdominal pain - Medication Medications: Active Medications Generic Name Dose Route Start Last Admin Trade Name Freq PRN Reason Stop Dose Admin Clonidine 0.1 mg 12/03/20 21:00 12/06/20 19:48 Clonidine 0.1 Mg Tab PO 0.1 mg HS ELIOT Administration Dorzolamide/Timolol 1 drop 12/03/20 09:00 12/07/20 09:02 Dorzolamide/Timolol 2%/0.5% Ophth Soln 10 Ml Bottle EA EYE 1 drp QAM ELIOT Administration Dorzolamide/Timolol 2 drop 12/03/20 21:00 12/06/20 19:49 Dorzolamide/Timolol 2%/0.5% Ophth Soln 10 Ml Bottle EA EYE 2 drop QPM ELIOT Administration Lisinopril/HCTZ 1 tab 12/03/20 09:00 12/07/20 09:02 Lisinopril/Hydrochlorothiazide 20/25 Mg Tablet PO 1 tab DAILY ELIOT Administration Latanoprost 1 drop 12/03/20 21:00 12/06/20 19:49 Latanoprost 0.005% Ophth Soln 2.5 Ml Bottle EA EYE [address] [facility] Administration Hospitalist Exam Vitals: Vital Signs (12 hours) Temp Pulse Resp BP BP Pulse Ox 12/07/20 07:54 98.6 F 72 12 96/74 96 12/07/20 03:32 97.4 F L 77 18 115/61 94 L 12/07/20 00:35 96 Weight Weight 221 lb 6.4 oz Eye: PERRL Neck: no JVD Heart: RRR, no murmur, no gallops, no rubs, normal peripheral pulses Respiratory: no wheezes, no rales, no ronchi, normal chest expansion Gastrointestinal: soft, non-tender, non-distended, normal bowel sounds Extremities: no cyanosis, 1+ LE edema Psychiatric: A&O x 3 Hosp A/P - Plan 85-year-old male past medical history of hypertension, glaucoma, prostate cancer status post mastectomy who has had few months history of shortness of breath on exertion found to have bilateral PEs on outpatient CT scan as well as multiple lung nodules concerning for malignancy. Patient follows with Dr. Correia. Bilateral pulmonary embolism Outpatient CT scan showed multiple pulmonary nodules as well as bilateral upper middle and lower lobe pulmonary embolism. Patient's respiratory status currently stable not requiring oxygen. Patient has chronic bilateral lower ex tremity swelling, but does note that his left leg has worse swelling than normal. He is a former smoker but quit over 10 years ago. He has no family history of cancer. LE DVT study negative. Continued on therapeutic lovenox. Will hold off on oral AC in case pulmonary has plans for bronchoscopy. Plan Lovenox therapeutic Closely monitor respiratory status Telemetry monitoring Pulmonology consult Multiple pulmonary nodules CT scan with multiple pulmonary nodules concerning for malignancy. Patient does have a history of prostate cancer which he underwent a prostatectomy and has been in complete remission. Does have a history of smoking but quit over 10 years ago family history of cancer. Respiratory status stable not requiring O2 at this time. Plan Pulmonology consult Hypertension We will continue home clonidine and lisinopril Glaucoma Continue home eye drops DVT prophylaxistherapeutic Lovenox Full codeMDM is patient's daughter 24th 2D echo ordered to make sure there is no right heart strain with the pulmonary embolus. Patient is getting Lovenox twice a day dose. There was a plan to be evaluated by Dr. Correia for pulmonary nodule. If he is planning to do bronchoscopy while inpatient, then we have to wait until that has been done before switching Lovenox to oral anticoagulant. -We will switch to Eliquis, when pulmonary cleared him after evaluation for pulmonary nodule. -2D echo shows EF of 60% and diastolic dysfunction; mild left atrial dilated Tatian It appears biopsy of the pulmonary nodule possibly on Saturday so will continue with the Lovenox for now for his pulmonary embolism. May need to stop at least 1 dose prior to the biopsy Hold Lovenox on Saturday and the lung biopsy . N.p.o. post Saturday midnight. BP a little on the lower end--96/74 Folate levels are low at 6.3--- supplement started. CT guided biopsy scheduled for tomorrow. He is NPO until then. Discharge anticipated for Saturday. n.p.o. after midnight He should go home either with Xarelto or Eliquis for his pulmonary embolism. Care plan discussed with the student in detail.
--- NOTE | 2020-12-07 10:07 | PRG ---
DATE OF SERVICE: 12/07/2020 SUBJECTIVE: Lb Schneider this morning is awake and responsive. No pain. No shortness of breath. OBJECTIVE: VITAL SIGNS: Temperature 98, pulse 70, respirations 20, saturations are 90% on room air, and blood pressure 96/74. CHEST: No wheezing. No crackles. CARDIAC: Normal S1 and S2. No gallops. ABDOMEN: Soft without masses. ASSESSMENT: 1. Bilateral pulmonary emboli. 2. Bilateral lung nodules. PLAN: He is to undergo a CT-guided biopsy tomorrow. Restart Lovenox thereafter. Hopefully home on Saturday. Job ID: [id number]
[2020-12-07] MEDS ORDERED: Sodium Chloride 0.9% 200 ML IV PRN (13:15)
[2020-12-07] MEDS: cloNIDine 0.1 MG TAB PO SCH (19:32)
[2020-12-07] MEDS: Latanoprost 0.005% Ophth Soln 2.5 ml Bottle EA EYE SCH (19:33)
[2020-12-07] MEDS: Lisinopril 10 MG TAB PO SCH (19:33)
[2020-12-08] MEDS: Folic Acid/Vit B Comp W-C PO SCH (08:55)
[2020-12-08] MEDS: DorzolamidE/Timolol 2%/0.5% Ophth Soln 10 ml Bottle EA EYE SCH ×2 (08:55→21:08)
[2020-12-08] MEDS: Lisinopril 10 MG TAB PO SCH ×2 (08:55→21:09)
[2020-12-08] MEDS ORDERED: Fentanyl 100 MCG/2 ML VIAL ONE (09:06)
[2020-12-08] MEDS ORDERED: Midazolam HCl 2 mg/2 ml Vial ONE (09:06)
[2020-12-08] MEDS ORDERED: Sodium Bicarbonate 2.5 MEQ/5 ML VIAL ONE (09:06)
--- NOTE | 2020-12-08 10:24 | RAD ---
Chest 2 views and 2 expiratory HISTORY: Lung mass. Biopsy. FINDINGS: Cardiac silhouette and pulmonary vasculature are unremarkable. Linear atelectasis at the ulices ng bases. Right upper lobe nodule is again demonstrated. No evidence of pneumothorax. IMPRESSION : No evidence of postbiopsy pneumothorax.
--- NOTE | 2020-12-08 10:34 | PDOC.HOSPP ---
- Subjective Encounter Date: 12/08/20 Encounter Time: 10:30 Subjective: Mr. Schneider was seen this morning in follow up of pulmonary nodules. He underwent a CT guided biopsy this morning. He says he is feeling well and anticipates going home. - Objective Vital Signs & Weight: Vital Signs (12 hours) Temp Pulse Resp BP BP Pulse Ox 12/08/20 08:47 97.8 F 86 16 119/67 97 12/08/20 08:00 97 12/08/20 03:20 127/88 12/08/20 03:15 97 12/08/20 03:10 98.4 F 85 20 97 12/07/20 23:15 88 114/57 L Weight Weight 221 lb 6.4 oz I&O: 12/07/20 12/08/20 12/09/20 06:59 06:59 06:59 Intake Total 590 890 Output Total 2200 650 Balance -1610 240 Result Diagrams: 12/06/20 04:25 12/06/20 04:25 Hospitalist ROS - Review of Systems Respiratory: denies: cough, shortness of breath Cardiovascular: denies: chest pain, palpitations Gastrointestinal: denies: nausea, vomiting, abdominal pain - Medication Medications: Active Medications Generic Name Dose Route Start Last Admin Trade Name Freq PRN Reason Stop Dose Admin Clonidine 0.1 mg 12/03/20 21:00 12/07/20 19:32 Clonidine 0.1 Mg Tab PO Not Given HS ELIOT Dorzolamide/Timolol 1 drop 12/03/20 09:00 12/08/20 08:55 Dorzolamide/Timolol 2%/0.5% Ophth Soln 10 Ml Bottle EA EYE Not Given QAM ELIOT Dorzolamide/Timolol 2 drop 12/03/20 21:00 12/07/20 19:33 Dorzolamide/Timolol 2%/0.5% Ophth Soln 10 Ml Bottle EA EYE 2 drop QPM ELIOT Administration Latanoprost 1 drop 12/03/20 21:00 12/07/20 19:33 Latanoprost 0.005% Ophth Soln 2.5 Ml Bottle EA EYE 1 drop HS ELIOT Administration Lisinopril 10 mg 12/07/20 21:00 12/08/20 08:55 Lisinopril 10 Mg Tab PO Not Given BID ELIOT Vitamin B Complex/Vit C/Folic Acid 1 tab 12/08/20 09:00 12/08/20 08:55 Folic Acid/Vit B Comp W-C PO Not Given DAILY [facility] Hospitalist Exam Vitals: Vital Signs (12 hours) Temp Pulse Resp BP BP Pulse Ox 12/08/20 08:47 97.8 F 86 16 119/67 97 12/08/20 08:00 97 12/08/20 03:20 127/88 12/08/20 03:15 97 12/08/20 03:10 98.4 F 85 20 97 12/07/20 23:15 88 114/57 L Weight Weight 221 lb 6.4 oz Eye: PERRL Heart: RRR Heart - other findings: slightly tachycardic Respiratory: CTAB Gastrointestinal: soft, non-tender, non-distended, normal bowel sounds, no palpable masses Extremities: no cyanosis, 1+ LE edema Neurological: cranial nerve grossly intact Psychiatric: A&O x 3 Hosp A/P - Plan 85-year-old male past medical history of hypertension, glaucoma, prostate cancer status post mastectomy who has had few months history of shortness of breath on exertion found to have bilateral PEs on outpatient CT scan as well as multiple lung nodules concerning for malignancy. Patient follows with Dr. Correia. Bilateral pulmonary embolism Outpatient CT scan showed multiple pulmonary nodules as well as bilateral upper middle and lower lobe pulmonary embolism. Patient's respiratory status currently stable not requiring oxygen. Patient has chronic bilateral lower extremity swelling, but does note that his left leg has worse swelling than normal. He is a former smoker but quit over 10 years ago. He has no family history of cancer. LE DVT study negative. Continued on therapeutic lovenox. Will hold off on oral AC in case pulmonary has plans for bronchoscopy. Plan Lovenox therapeutic Closely monitor respiratory status Telemetry monitoring Pulmonology consult Multiple pulmonary nodules CT scan with multiple pulmonary nodules concerning for malignancy. Patient does have a history of prostate cancer which he underwent a prostatectomy and has been in complete remission. Does have a history of smoking but quit over 10 ye ars ago family history of cancer. Respiratory status stable not requiring O2 at this time. Plan Pulmonology consult Hypertension We will continue home clonidine and lisinopril Glaucoma Continue home eye drops DVT prophylaxistherapeutic Lovenox Full codeMDM is patient's daughter 2D echo ordered to make sure there is no right heart strain with the pulmonary embolus. Patient is getting Lovenox twice a day dose. There was a plan to be evaluated by Dr. Correia for pulmonary nodule. If he is planning to do bronchoscopy while inpatient, then we have to wait until that has been done before switching Lovenox to oral anticoagulant. -We will switch to Eliquis, when pulmonary cleared him after evaluation for pulmonary nodule. -2D echo shows EF of 60% and diastolic dysfunction; mild left atrial dilated Tatian It appears biopsy of the pulmonary nodule possibly on Saturday so will continue with the Lovenox for now for his pulmonary embolism. May need to stop at least 1 dose prior to the biopsy Hold Lovenox on Saturday and the lung biopsy . N.p.o. post Saturday midnight. BP a little on the lower end--96/74 Folate levels are low at 6.3--- supplement started. CT guided biopsy scheduled for tomorrow. He is NPO until then. Discharge anticipated for Saturday. n.p.o. after midnight He should go home either with Xarelto or Eliquis for his pulmonary embolism. Care plan discussed with the student in detail. CT scan with multiple pulmonary nodules - primary vs.. mets from prostate. Status post CT guided biopsy of the right lung reStart Lovenox tonight and Eliquis tomorrow. Anticipate discharge tomorrow. Care discussed with the patient and the daughter at bedside Patient is expected to follow-up with Dr. Correia on Saturday regarding biopsy result Education provided for Cautions when being on blood thinner. Patient seen with the student This progress note reviewed by me with the student.
--- NOTE | 2020-12-08 10:46 | CT ---
Right upper lobe lung mass biopsy CT-guided HISTORY: Lung masses. FINDINGS: After explaining the procedure and answering all questions, limited CT imaging of the chest was performed. With the patient prone, sterile technique, buffered local anesthesia, CT guidance, and a posterior in tercostal approach were used to carefully advance the tip of a 19-gauge trocar needle into the pleural-based mass at the far posterior inferior aspect of the right upper lobe. Position was confirmed with CT. A total of 2 20-gauge core specimens were obtained and eventually submitted to pathology for evaluati on. Needle was removed. No evidence of pneumothorax or other complication. Patient tolerated the procedure well and was returned in unchanged condition. IMPRESSION : Technically successful CT-guided biopsy right upper lobe mass. Pathology is pending.
--- NOTE | 2020-12-08 12:21 | PRG ---
DATE OF SERVICE: SUBJECTIVE: Lb Schneider is status post CT-guided biopsy of right lung mass. OBJECTIVE: VITAL SIGNS: Temperature 98, pulse 86, respiratory rate 16, sats 96% on room air, and blood pressure 119/67. GENERAL: Denies pain or discomfort. CHEST: No wheezing. No crackles. CARDIAC: Normal S1, S2. No gallops. ABDOMEN: No masses. ASSESSMENT AND PLAN: Multiple lung nodules, pulmonary emboli. Start Lovenox tonight. Hopefully, Thierryis tomorrow to be discharged. Follow up in the office at a later time. Job ID: [id number]
--- NOTE | 2020-12-08 12:52 | RAD ---
Chest 2 views HISTORY: Lung mass. Biopsy. FINDINGS: Lungs are well-inflated. No evidence of abnormal pleural gas. Right upper lobe nodule again demonstrated. Chronic-type findings are stable. IMPRESSION : No evidence of pneumothorax.
[2020-12-08] MEDS ORDERED: Enoxaparin Sodium 100 MG/ML SYRINGE SC SCH (21:00)
[2020-12-08] MEDS: Latanoprost 0.005% Ophth Soln 2.5 ml Bottle EA EYE SCH (21:08)
[2020-12-08] MEDS: cloNIDine 0.1 MG TAB PO SCH (21:09)
[2020-12-08] MEDS ORDERED: Melatonin 3 MG TAB PO PRN (23:47)
[2020-12-09 04:31] LABS: Hemoglobin 13.6 g/dL (14.0-18.0); Platelet Count 184 thou/uL (130-400)
[2020-12-09 08:42] VITALS: BP 108/73; TEMP 98.2
[2020-12-09] MEDS ORDERED: Apixaban 5 MG TAB PO SCH (09:00)
[2020-12-09] MEDS: DorzolamidE/Timolol 2%/0.5% Ophth Soln 10 ml Bottle EA EYE SCH (09:06)
[2020-12-09] MEDS: Lisinopril 10 MG TAB PO SCH (09:07)
[2020-12-09] MEDS: Folic Acid/Vit B Comp W-C PO SCH (09:11)
--- NOTE | 2020-12-09 10:37 | PRG ---
DATE OF SERVICE: 12/09/2020 OBJECTIVE: VITAL SIGNS: Temperature 98.0, pulse , respirations are 14, saturations 97% on room air, blood pressure . HEENT: Denies any pain or discomfort. CHEST: No wheezing. No crackles. CARDIAC: Normal S1. ABDOMEN: No masses. ASSESSMENT: 1. Status post lung biopsy, right upper lobe. 2. Pulmonary emboli. PLAN: The patient is discharged home on Eliquis. We will notify the office next week regarding his path report. Job ID: [id number]
--- NOTE | 2020-12-09 15:40 | PDOC.DS.DS ---
Provider Date of Admission: 12/02/20 17:02 Admitting Provider: Navid Maynard MD Primary Care Physician: Nida Arriaga, BENIGNO Course Hospital Course: 85-year-old male past medical history of hypertension, glaucoma, prostate cancer status post mastectomy who has had few months history of shortness of breath on exertion found to have bilateral PEs on outpatient CT scan as well as multiple lung nodules concerning for malignancy. Patient follows with Dr. Correia. Bilateral pulmonary embolism Outpatient CT scan showed multiple pulmonary nodules as well as bilateral upper middle and lower lobe pulmonary embolism. Patient's respiratory status currently stable not requiring oxygen. Patient has chronic bilateral lower extremity swelling, but does note that his left leg has worse swelling than normal. He is a former smoker but quit over 10 years ago. He has no family history of cancer. LE DVT study negative. Continued on therapeutic lovenox. Will hold off on oral AC in case pulmonary has plans for bronchoscopy. Multiple pulmonary nodules CT scan with multiple pulmonary nodules concerning for malignancy. Patient does have a history of prostate cancer which he underwent a prostatectomy and has been in complete remission. Does have a history of smoking but quit over 10 years ago family history of cancer. Respiratory status stable not requiring O2 at this time. Status post CT guided biopsy of the right lung -2D echo shows EF of 60% and diastolic dysfunction; mild left atrial dilated Tatian Folate levels are low at 6.3--- supplement started. Discharged with [facility] and he needs to follow with the panelboard assembler regarding biopsy result. PCP follow-up in 1 week. Discharge time over 30 minutes. Resuscitation Status: 12/02/20 21:54 Resuscitation Status Routine Co-Sign Provider: Resuscitation Status: FULL: Full Resuscitation Lab Results: 12/09/20 04:00 12/06/20 04:25 Abnormal Lab Results - Last 48 hrs 12/09/20 04:00: Hgb 13.6 L, Hct 40.3 L Vitals: Vital Signs (12 hours) Temp Pulse Resp BP BP Pulse Ox 12/09/20 08:00 98.2 F 80 14 108/73 97 12/09/20 04:07 97.7 F 84 20 142/71 H 98 Weight Weight 218 lb 6 oz Physical Exam: The patient was seen and examined on the day of discharge. No complaints this morning. He is ready to go home. His daughter will be coming to give a ride. Plan Prescriptions: Apixaban [Eliquis] 5 mg PO BID 30 Days #60 tab Home Medications: Medication Instructions Recorded Confirmed Type Albuterol Sulfate HFA (OR) 1 puff INH Q4HR PRN 12/02/20 12/02/20 History [Proventil Hfa (or)] Dorzolamide HCl/Timolol Maleat 1 - 2 drop EA EYE ASDIR 12/02/20 12/02/20 History [Cosopt Ophth Solution] Latanoprost/Pf [Latanoprost 0.005% 1 drop EA EYE ASDIR 12/02/20 12/02/20 History Eye Drop] Lisinopril/Hydrochlorothiazide 1 tab PO DAILY 12/02/20 12/02/20 History [Lisinopril-Hctz 20-25 mg Tab] cloNIDine [Catapres] 0.1 mg PO HS 12/02/20 12/02/20 History Apixaban [Eliquis] 5 mg PO BID 30 Days #60 tab 12/09/20 Rx Allergies: No Known Drug Allergies Allergy (Verified 12/02/20 20:30) Activity:: Activity as Tolerated Nourishment:: Heart Healthy Diet Referrals: Jose D Correia MD [Active] - 10 Days (Please call the office and schedule a follow up appointment, and to discuss the results of your lung biopsy) Nida Arriaga FNP [Primary Care Provider] - 7 Days (Please call the office and schedule a follow up appointment) Disposition: HOME Quality CORE MEASURES:: N/A
--- NOTE | 2020-12-12 06:53 | PQF ---
CLINICAL DOCUMENTATION CLARIFICATION FORM: Dear : Marcellus Browne Date / Time: 12/12/20 06:53 Please exercise your independent, professional judgment in responding to the clarification form. Clinical indicators are provided on the bottom of this form for your review COVID 19 Clarification and Manifestations: Please check appropriate box(es): A. COVID 19 virus diagnosis Validation: [ ] COVID-19 is ruled in (if so, please provide the evidence used to support this diagnosis) [ ] COVID-19 has been ruled out [ ] Other explanation of clinical findings [ ] Unable to determine B. COVID 19 virus with associated manifestations: (please check all that apply) [ ] Acute Respiratory Failure [ ] Other diagnosis,please specify [ x ] Unable to determine In addition, please specify: Present on Admission (POA): [ ] Yes [ ] No [ ] Unable to determine Physician Signature: Date/Time: For continuity of documentation, please document condition throughout progress notes and discharge summary. Thank You. To be completed by CDI/Coding staff for physician review: Present Clinical Indicators - Signs / Symptoms / Labs Results and Location in Medical Record [x] Respiratory failure, robledo positive secondary to PE PN 12/06 [x] had SOB ED Notes 12/02 [x] Chest Xray: Linear atelectasis at the lung bases Chest Xray 12/08 [x] Chest: no wheezing. No crackles PN 12/07 [x] WBC: 12/02=9.4 12/05=6.7 12/06=7.1 Laboratory 12/02 [x] Sars-Cov: not detected Laboratory 12/02 [x] 02 Sat: 12/04=94 12/06=94 11/17=94 Laboratory 12/04 Present Risk Factors Results and Location in Medical Record [x] Former Smoker ED Notes 12/02 [x] 85 years old male HP 12/02 [x] PE HP 12/02 [x] Pulmonary nodule HP 12/02 [x] Lung cancer DS 12/09 Present Treatments Results and Location in Medical Record [x] IVF MAR 12/07 [x] Purlmonology [place] Consult 12/02 CDS/Control Chemist Signature:Rashi Fried Phone #: ext [phone] Date/Time: 12/12/20 This is a permanent part of the Medical Record [facility]
--- NOTE | 2020-12-12 11:29 | CT ---
Right upper lobe lung mass biopsy CT-guided HISTORY: Lung masses. FINDINGS: After explaining the procedure and answering all questions, limited CT imaging of the chest was performed. With the patient prone, sterile technique, buffered local anesthesia, CT guidance, and a posterior in tercostal approach were used to carefully advance the tip of a 19-gauge trocar needle into the pleural-based mass at the far posterior inferior aspect of the right upper lobe. Position was confirmed with CT. A total of 2 20-gauge core specimens were obtained and eventually submitted to pathology for evaluati on. Needle was removed. No evidence of pneumothorax or other complication. Patient tolerated the procedure well and was returned in unchanged condition. IMPRESSION : Technically successful CT-guided biopsy right upper lobe mass. Pathology is pending. Transcribed Date/Time: 12/12/2020 11:28 AM
--- NOTE | 2020-12-13 22:35 | PQF ---
CLINICAL DOCUMENTATION CLARIFICATION FORM: Dear : Jose D Correia Date / Time: 12/13/20 22:34 Please exercise your independent, professional judgment in responding to the clarification form. Clinical indicators are provided on the bottom of this form for your review Based on the clinical indicators on admit, can you determine if Covid19 infection was present at the time of admission or developed after admission? Diagnosis: Covid Present on Admission (POA): [ ] Yes [ ] No [ ] Unable to determine Physician Signature: Date/Time: For continuity of documentation, please document condition throughout progress notes and discharge summary. Thank You. To be completed by CDI/Coding staff for physician review: Present Clinical Indicators - Signs / Symptoms / Labs Results and Location in Medical Record [x] Respiratory failure, robledo positive secondary to PE PN 12/06 [x] had SOB ED Notes 12/02 [x] Chest Xray: Linear atelectasis at the lung bases Chest Xray 12/08 [x] Chest: no wheezing. No crackles PN 12/07 [x] WBC: 12/02=9.4 12/05=6.7 12/06=7.1 Laboratory 12/02 [x] Sars-Cov: not detected Laboratory 12/02 [x] 02 Sat: 12/04=94 12/06=94 11/17=94 Laboratory 12/04 Present Risk Factors Results and Location in Medical Record [x] Former Smoker ED Notes 12/02 [x] 85 years old male HP 12/02 [x] PE HP 12/02 [x] Pulmonary nodule HP 12/02 [x] Lung cancer DS 12/09 Present Treatments Results and Location in Medical Record [x] IVF JAN 09 [x] Purlmonology Consult Consult 12/02 CDS/Reconciliation Manager Signature:Rashi Fried Phone #: [phone] Date/Time:12/13/20 This is a permanent part of the Medical Record [facility]
--- NOTE | 2020-12-13 22:39 | PQF ---
CLINICAL DOCUMENTATION CLARIFICATION FORM: Dear : Jose D Correia Date / Time: 12/13/20 22:38 Please exercise your independent, professional judgment in responding to the clarification form. Clinical indicators are provided on the bottom of this form for your review Can you please clarify the respiratory status of the patient? Please check appropriate box(es): [ ] Acute respiratory failure [ ] Chronic respiratory failure [ ] Acute on chronic respiratory failure [ ] Other diagnosis, please specify: [ ] Unable to determine In addition please specify: Present on Admission (POA): [ ] Yes [ ] No [ ] Unable to determine Physician Signature: Date/Time: For continuity of documentation, please document condition throughout progress notes and discharge summary. Thank You. To be completed by CDI/Coding staff for physician review: Present Clinical Indicators - Signs / Symptoms / Labs Results and Location in Medical Record [x] Respiratory failure, robledo positive secondary to PE PN 12/06 [x] had SOB ED Notes 12/02 [x] Chest Xray: Linear atelectasis at the lung bases Chest Xray 12/08 [x] Chest: no wheezing. No crackles PN 12/07 [x] WBC: 12/02=9.4 12/05=6.7 12/06=7.1 Laboratory 12/02 [x] Sars-Cov: not detected Laboratory 12/02 [x] 02 Sat: 12/04=94 12/06=94 11/17=94 Laboratory 12/04 Present Risk Factors Results and Location in Medical Record [x] Former Smoker ED Notes 12/02 [x] 85 years old male HP 12/02 [x] PE HP 12/02 [x] Pulmonary nodule HP 12/02 [x] Lung cancer DS 12/09 [x] Former Smoker ED Notes 12/02 Present Treatments Results and Location in Medical Record [x] IVF JAN 09 [x] Purlmonology Consult Consult 12/02 CDS/Motion Picture Cameraman Signature: Rashi Fried Phone #: [phone] Date/Time:12/13/20 Acute Respiratory Failure: ABG pH < 7.35 or > 7.45; Decreased oxygen saturation (<90% room air or < 95% on oxygen); PCO2 > 50 mm Hg; PO2 < 60 mm Hg; Labored or rapid respirations ARDS: Dx Criteria [[employer] ARDS]: Respiratory symptoms within one week of a known clinical insult (e.g. shock, infection, surgery, trauma) Bilateral opacities in CXR/Chest CT not due to CHF or fluid This is a permanent part of the Medical Record [facility]
== END 2020-12-09 11:52 | disposition home or self-care (01) | DRG 180 ==
LOC: ERS 15:12 → 2NO 17:02
PROVIDERS: ADMIT Internal Medicine; ATTEND Internal Medicine
PROC: 0BBC3ZX Excision of Right Upper Lung Lobe, Percutaneous Approach, Diagnostic (ICD-10-PCS; principal; 2020-12-08)
DX: C34.11 Malignant neoplasm of upper lobe, right bronchus or lung (principal); I26.99 Other pulmonary embolism without acute cor pulmonale; J80 Acute respiratory distress syndrome; I10 Essential (primary) hypertension; E66.01 Morbid (severe) obesity due to excess calories; H40.9 Unspecified glaucoma; Z85.46 Personal history of malignant neoplasm of prostate; Z90.49 Acquired absence of other specified parts of digestive tract; Z87.891 Personal history of nicotine dependence; Z88.0 Allergy status to penicillin; Z88.2 Allergy status to sulfonamides; Z68.31 Body mass index [BMI] 31.0-31.9, adult; Z90.79 Acquired absence of other genital organ(s); Z79.899 Other long term (current) drug therapy; Z20.822 Contact with and (suspected) exposure to COVID-19
CPT/HCPCS: 32408; 36415; 71045; 71260; 77012; 80048; 80053; 82565; 82607; 82746; 83880; 84484; 85014; 85018; 85025; 85049; 85379; 85610; 85730; 87635; 88305; 88313; 88325; 88341; 88342; 93005; 93306; 93970; 96372; J1650; J2250; J3010; Q9967; U0003; U0005

== ENCOUNTER 2021-01-06 10:59 | Outpatient (CLI) | payer MEDICARE, OTHER ==
--- NOTE | 2021-01-06 15:00 | PET ---
Radionucleotide PET scan whole body with CT attenuation correction HISTORY: Melanoma. Lung metastases. Initial staging. FINDINGS: Slightly increased uptake associated with the solid nodule at the posterior aspect of the r ight lung upper lobe shows max SUV 2.5. Markedly increased uptake is present at the superior surface of the tongue max SUV 10.1. Throughout the abdomen, there are multiple fairly homogeneous and well-circumscribed soft tissue dens ity masses. Posterior to the spleen, a 2.0 cm mass shows max SUV 3.2 To the right of the inferior vena cava just below the level of the right kidney, a 2.6 cm mass shows max SUV 4.6. Within the mesenteric fat of the right lower quadrant immediately medial to the right colon, a 5.4 cm mass shows max SUV 4.0. There are additional innumerable similar but smaller nodules that are sub-hypermetabolic. Multiple hypermetabolic foci are present throughout the skeleton.: Location, max SUV: Right T2 facet, 3.4 T7 vertebral body destructive lesion, 4.0 Left humeral neck, 3.8 Left hand at third/fourth metacarpal, 8.7 Left middle cuneiform, 3.6 Right hip intertrochanteric, 2.6 Right mid femoral shaft, 6.6 Left distal femoral shaft, 5.[address] attenuation correction images also show cysts arising from the cortex of each ki dney. Small nonobstructing calcifications of each kidney. Small Superficial subcutaneous lipomatous lesion at the left gluteal level. A well-circumscribed fluid density mass along the right internal il iac neurovascular bundle is 2.8 cm x 2.2 cm greatest diameters on the axial images and is not hypermetabolic. Possibly a lymphocele related to prior prostate surgery. Evidence of diverticulosis w ithout diverticulitis. IMPRESSION : Widespread metastatic disease involving the right lung upper lobe, abdomen, and axial and appendicula r skeleton. Possible involvement of the superior surface of the tongue. Correlate with visual exam.
== END 2021-01-06 11:00 | disposition home or self-care (01) ==
LOC: PET 10:59
PROVIDERS: ATTEND Internal Medicine Hematology & Oncology
DX: C43.9 Malignant melanoma of skin, unspecified (principal); C78.01 Secondary malignant neoplasm of right lung; C79.89 Secondary malignant neoplasm of other specified sites; C79.51 Secondary malignant neoplasm of bone
CPT/HCPCS: 78816; A9552

== ENCOUNTER 2021-01-10 14:13 | Outpatient (CLI) | payer MEDICARE, OTHER ==
[~2021-01-10 14:13] MED LIST: Magnevist 469MG/ML 20 ML VIAL ONE
--- NOTE | 2021-01-10 15:27 | MRI ---
MRI brain with and without contrast: DATE: 01/10/2021 HISTORY: 85-year-old male with "malignant melanoma of skin". Evaluate for brain metastasis. TECHNIQUE: Multiplanar, multisequence MRI of the brain obtained pre and post IV injection of gadolinium based co ntrast agent. FINDINGS: There is no obstructive hydrocephalus. There is no midline shift or any other evidence of mass effect . There is no extra-axial fluid collection. There are mild chronic ischemic white matter changes due to microvascular atherosclerosis. There is otherwise no major intra-axial signal abnormality, abn ormal enhancement, mass, recent hemorrhage, or restricted diffusion. Tiny old lacunar infarctions in left internal capsule genu and left basal ganglia, and questionably on the right IMPRESSION: 1) mild chronic ischemic white matter changes. 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
--- NOTE | 2021-01-10 17:11 | RAD ---
BONE SURVEY: 01/10/21 HISTORY: Melanoma with lung metastases. History of hypermetabolic lesion seen throughout the skeleton on recen t PET scan of 01/06/21. The bones appear diffusely demineralized. It is difficult to appreciate the lesions described on the PET scan although some of these are visualized on CT. The right sided T7 destructive bone lesion note d on the CT is difficult to reliably appreciate. There is marked arthritic changes and scoliosis of t he spine. An area of increased uptake in the right hip intertrochanteric region does not show a defin itive abnormality. Also description of a right mid femoral shaft lesion is not definitive. There is s ome bony demineralization present. On the left side, I do see an area of lucency in the left distal femoral shaft which appears to corre spond to the area in question. The left humeral neck abnormality is not definitely seen. IMPRESSION: Marked degenerative changes along the course of the spine. overall, the bone lesions noted on PET sca n are difficult to appreciate. The areas that are felt to be more definitive in nature would be an ar ea of lucency in the distal left femoral shaft. The other areas are more equivocal as to whether ther e is any true plain film abnormality seen at the areas described on PET scan. POS: ISAMAR
== END 2021-01-10 14:14 | disposition home or self-care (01) ==
LOC: MRI 14:13
PROVIDERS: ATTEND Internal Medicine Hematology & Oncology
DX: C43.9 Malignant melanoma of skin, unspecified (principal); C78.01 Secondary malignant neoplasm of right lung; I67.82 Cerebral ischemia; M47.9 Spondylosis, unspecified; M89.9 Disorder of bone, unspecified
CPT/HCPCS: 70553; 77075; A9579

== ENCOUNTER 2021-03-28 09:02 | Outpatient (CLI) | payer MEDICARE, OTHER | END 2021-03-28 09:03 | disposition home or self-care (01) | LOC: PET 09:02 | PROVIDERS: ATTEND Internal Medicine Hematology & Oncology | DX: C43.9 Malignant melanoma of skin, unspecified (principal); C78.01 Secondary malignant neoplasm of right lung; C79.51 Secondary malignant neoplasm of bone; C79.89 Secondary malignant neoplasm of other specified sites | CPT/HCPCS: 78816; A9552 ==

== ENCOUNTER 2021-11-21 09:34 | Outpatient (CLI) | payer MEDICARE, OTHER | END 2021-11-21 09:35 | disposition home or self-care (01) | LOC: PET 09:34 | PROVIDERS: ATTEND Internal Medicine Hematology & Oncology | DX: C43.9 Malignant melanoma of skin, unspecified (principal); C78.01 Secondary malignant neoplasm of right lung | CPT/HCPCS: 78816; A9552 ==